=== PATIENT | male | born 1965 ===

== ENCOUNTER 2019-05-19 15:09 | Outpatient (REF) | payer BC, SELFPAY ==
[2019-05-19 21:51] LABS: Abs Immature Grans 0.01 k/cumm (0.0-0.09); Absolute Basophil Count 0.02 k/cumm (0.0-0.2); Absolute Eosinophil Count 0.02 k/cumm (0.0-0.7); Absolute Lymphocyte Count 1.13 k/cumm (1.2-3.4); Absolute Monocyte Count 0.46 k/cumm (0.11-0.7); Absolute Neutrophil Count 2.03 k/cumm (1.2-6.7); Basophils % 0.5; Eosinophils % 0.5; HCT 44.3 % (40.0-50.0); HGB 14.9 g/dL (13.5-17.5); Immature Grans % 0.3; Lymphocytes % 30.8; Mean Corp. HGB Concentration 33.6 g/dL (32.0-36.0); Mean Corpuscular Hemoglobin 30.2 pg (27.0-33.0); Mean Corpuscular Volume 89.9 fL (80-95); Mean Platelet Volume 11.2 fL (8.0-11.0); Monocytes % 12.5; Neutrophils % 55.4; Platelet Count 215 x1000/uL (130-400); RBC 4.93 m/cumm (4.50-6.00); RBC Distribution Width 13.5 % (11.8-14.1); White Blood Cell Count 3.67 k/cumm (4.4-10.8)
[2019-05-19 22:23] LABS: ALT 37 U/L (16-63); AST 30 U/L (15-37); Albumin 4.3 g/dL (3.4-5.0); Alkaline Phosphatase 88 U/L (46-116); Anion Gap 10.1 mmol/L (3-11); BUN 12 mg/dL (7-18); Bilirubin, Total 0.5 mg/dL (0.2-1.0); CO2 26.9 mmol/L (21.0-32.0); CREATININE 0.79 mg/dL (0.70-1.30); Calcium 8.7 mg/dL (8.5-10.1); Chloride 104 mmol/L (98-107); Glucose 102 mg/dL (70-100); Potassium 4.3 mmol/L (3.5-5.1); Sodium 141 mmol/L (136-145); TSH 1.33 uIU/mL (0.36-3.74); Total Protein 7.2 g/dL (6.4-8.2)
== END 2019-05-19 15:29 ==
LOC: NCHCN 15:09
PROVIDERS: PCP Nurse Practitioner Family; Visit Provider Nurse Practitioner Family
DX: R53.81 Other malaise (principal)
CPT/HCPCS: 80053; 84443; 85025

== ENCOUNTER 2019-10-21 09:38 | Outpatient (REF) | payer BC, SELFPAY ==
[2019-10-23 11:36] LABS: Lyme Ab w Rflx to Lyme Confirm Equivocal (Negative)
[2019-10-27 18:34] LABS: Anaplasma phagocytophilum Negative (Negative); B. miyamotoi PCR Negative (Negative); Babesia divergens/MO-1 Negative (Negative); Babesia duncani Negative (Negative); Babesia microti Negative (Negative); Ehrlichia chaffeensis Negative (Negative); Ehrlichia ewingii/canis Negative (Negative); Ehrlichia muris eauclairensis Negative (Negative)
[2019-10-29 15:33] LABS: IgG Immunoblot Negative (Negative); IgM Immunoblot Negative (Negative)
== END 2019-10-21 09:58 ==
LOC: NCHCN 09:38
PROVIDERS: PCP Nurse Practitioner Family; Visit Provider Nurse Practitioner Family
DX: R53.81 Other malaise (principal)
CPT/HCPCS: 86617; 87798; 86618

== ENCOUNTER 2022-12-05 17:56 | Outpatient (REF) | payer OTHER, SELFPAY ==
[2022-12-05 21:19] LABS: HCT 42.6 % (40.0-50.0); HGB 14.3 g/dL (13.5-17.5); MCH 30.3 pg (27.0-33.0); MCHC 33.6 % (32.0-36.0); MCV 90 fL (80-95); MPV 11.8 fL (8.0-11.0); Platelet Count 185 10^3/uL (130-400); RBC 4.72 10^6/uL (4.36-5.78); RDW 13.4 % (11.8-14.1); RDW-SD 44.5 fL; WBC 4.62 10^3/uL (4.4-10.8)
[2022-12-05 21:28] LABS: ALT 46 U/L (16-63); AST 38 U/L (15-37); Albumin 4.4 g/dL (3.4-5.0); Alkaline Phosphatase 96 U/L (46-116); Anion Gap 6.1 mmol/L (3-11); BUN 18 mg/dL (7-18); Bilirubin, Total 0.5 mg/dL (0.2-1.0); CO2 30.9 mmol/L (21.0-32.0); CREATININE 1.1 mg/dL (0.70-1.30); Calcium 9.2 mg/dL (8.5-10.1); Calculated LDL 83 mg/dL (<100); Chloride 104 mmol/L (98-107); Cholesterol 152 mg/dL (<200); Estimated GFR 77.33 (mL/min/1.73m2); Glucose 95 mg/dL (74-106); HDL Cholesterol 64 mg/dL (40-60); Potassium 4.6 mmol/L (3.5-5.1); Sodium 141 mmol/L (136-145); TSH 1.96 uIU/mL (0.36-3.74); Total Protein 7.6 g/dL (6.4-8.2); Triglyceride 28 mg/dL (<150)
== END 2022-12-05 17:57 | disposition home or self-care (01) ==
LOC: NCHCN 17:56
PROVIDERS: PCP Nurse Practitioner Family; Visit Provider Nurse Practitioner Family
DX: Z00.00 Encounter for general adult medical examination without abnormal findings (principal); G43.909 Migraine, unspecified, not intractable, without status migrainosus; M54.59 Other low back pain; Z13.1 Encounter for screening for diabetes mellitus; Z13.220 Encounter for screening for lipoid disorders; Z13.29 Encounter for screening for other suspected endocrine disorder
CPT/HCPCS: 80053; 80061; 85027; 84443

== ENCOUNTER 2025-02-12 08:44 | Outpatient (REF) | payer OTHER, SELFPAY ==
[2025-02-12 16:17] LABS: ESR 4 mm/hr (0-20)
[2025-02-12 16:49] LABS: Calculated LDL 91 mg/dL (<100); Cholesterol 163 mg/dL (<200); HDL Cholesterol 58 mg/dL (>or=40); Triglyceride 72 mg/dL (<150)
[2025-02-12 17:00] LABS: C-Reactive Protein < 0.50 mg/dL (<or=0.5)
[2025-02-13 10:42] LABS: Lyme Ab w Rflx to Lyme Confirm Equivocal (Negative)
[2025-02-13 10:52] LABS: Hepatitis C Ab w Rflx HCV PCR Negative (Negative)
[2025-02-13 12:33] LABS: Lyme IgG Ab Negative (Negative)
[2025-02-16 09:33] LABS: B. miyamotoi PCR Negative (Negative); Babesia divergens/MO-1 Negative (Negative); Ehrlichia muris eauclairensis Negative (Negative)
== END 2025-02-12 08:45 | disposition home or self-care (01) ==
LOC: NCHCN 08:44
PROVIDERS: PCP Nurse Practitioner Family; Visit Provider Nurse Practitioner Family
DX: Z00.00 Encounter for general adult medical examination without abnormal findings (principal); Z11.59 Encounter for screening for other viral diseases; M79.10 Myalgia, unspecified site; Z13.220 Encounter for screening for lipoid disorders
CPT/HCPCS: 80061; 85652; 86200; 86617; 86803; 87798; 86038; 86140; 86431; 86618